=== PATIENT | male | born 1955 | race Two or more races ===

== ENCOUNTER 2017-01-17 10:23 | Emergency (ER) | payer MEDICAID, OTHER ==
[2017-01-17] MEDS ORDERED: IOPAMIDOL 370 (76%) 100 ML VIAL IV ONE (10:24)
[2017-01-17 11:13] LABS: ABSOLUTE NEUTROPHIL COUNT 3.6 K/mm3 (1.8-7.7); BASO % 0.6 % (0.2-1.0); EOS # 0.2 (0.0-0.5); EOS % 3.9 % (0.9-2.9); HEMOGLOBIN 14.6 gm/l (14.0-18.0); IMM NEUT # 0.1 K/mm3 (0-0.2); IMM NEUT% 0.8 % (0-1); LYMPH # 1.9 (1.0-4.8); LYMPH % 29.9 % (15-45); MEAN CELL VOLUME 89.1 fl (80.0-94.0); MEAN CORPUSCULAR HEMOGLOBIN 31.7 pg (27.0-31.0); MEAN CORPUSCULAR HGB CONC 35.6 g/dl (33.0-37.0); MEAN PLATELET VOLUME 12.6 fl (7.4-10.4); MONO # 0.4 (0.0-0.8); MONO % 6.3 % (4-12); NEUT % 58.5 % (43-75); PLATELET COUNT 203 K/mm3 (130-400)
[2017-01-17 11:22] LABS: ALB/GLOB RATIO 1.4 (>1.0); CALCIUM 8.9 mg/dL (8.6-10.3)
[2017-01-17 11:33] LABS: SPECIFIC GRAVITY 1.015 (1.001-1.030); URINE APPEARANCE CLEAR; URINE BILIRUBIN NEGATIVE (NEGATIVE); URINE BLOOD NEGATIVE (NEGATIVE); URINE COLOR YELLOW; URINE GLUCOSE (UA) NEGATIVE (NEGATIVE); URINE LEUKOCYTE ESTERASE NEGATIVE (NEGATIVE); URINE NITRITE NEGATIVE (NEGATIVE); URINE PROTEIN NEGATIVE (NEGATIVE); URINE UROBILINOGEN NORMAL (0-1 mg/dl)
--- NOTE | 2017-01-17 12:25 | CT ---
HEAD W/O CON History: Right-sided facial droop. Comparison: None. Procedure: 1 mm axial images were obtained through the head from the vertex to the base of the skull without intravenous contrast. Stacked reconstructed 5 mm images were then obtained in the axial, coronal and sagittal planes. Findings: The lateral ventricles are of normal size and shape without evidence of hydrocephalus. No evidence of midline shift is seen. No mass or mass-effect is observed. No evidence of intra- or extra-axial fluid collections or hemorrhage is identified. The parks/white differentiation is within expected. The basilar cisterns remain uneffaced. The posterior fossa structures are unremarkable. No acute osseous abnormalities are identified. Impression: 1. A negative unenhanced CT scan of the brain.
--- NOTE | 2017-01-17 12:34 | CT ---
CTA HEAD W/ POST PROCESS History: Facial droop. Comparison: None. Procedure: 1 mm axial images were obtained through the head following the administration of 80cc's of Isovue-370 intravenous contrast. Stacked reconstructed 3 mm images were then photographed in the axial, coronal and sagittal planes. 3-D reconstructed MIP images were also performed on the scanner workstation. Findings: There is a relatively normal course and caliber of the left intracranial carotid artery. The left middle and anterior cerebral branches appear to be appropriate. There is no pruning of the distal middle cerebral artery branches noted. The intracranial portion of the right internal carotid artery demonstrates a relative stenosis seen at axial image 110 at the level of the infrasellar region with at least a stenosis of 60% the original diameter. The middle and anterior cerebral branches remain patent. The distal middle cerebral artery branches do not demonstrate significant pruning. The vertebral arteries are codominant. The basilar artery and posterior cerebral vessels appear to be appropriate. Impression: 1. An approximate 60% diameter stenosis of the intracranial right internal carotid artery in an infrasellar location.
--- NOTE | 2017-01-17 12:39 | CT ---
CTA CAROTID W/ POST PROCESS History: Facial droop. Comparison: None. Procedure: 1 mm axial images were obtained through the neck following the administration of 80cc's of Isovue-370 intravenous contrast. Stacked reconstructed 3 mm images were then photographed in the axial, coronal and sagittal planes. 3-D reconstructed MIP images were also performed on the scanner workstation. Findings: No significant mediastinal adenopathy is visualized. There is note made of a 1.6 cm right thyroid lobe nodule. A few scattered cervical chain lymph nodes are identified. The lung apices appear to be appropriate. The left subclavian artery demonstrates a small amount of soft plaque within its proximal aspect without a significant stenosis. The distal portion of the vessel are appropriate. The innominate and right subclavian arteries are unremarkable. The left common carotid artery is moderately tortuous. There is a small amount of atherosclerotic plaque observed at the bifurcation with a subtle linear focus at the origin of the internal carotid artery which may reflect a subtle intimal flap. The distal portion of the vessel are tortuous door otherwise unremarkable. The right common carotid artery demonstrates a tortuous course. There is a small amount of soft plaque seen at the bifurcation though no significant stenosis is visualized. The vertebral arteries appear to be codominant. The course and caliber of the vessels are unremarkable. Impression: 1. A subtle linear focus of the origin of the left internal carotid artery which may reflect an intimal flap. No significant stenosis is visualized. 2. Soft plaque at the origin of the left subclavian artery without production of a significant stenosis. 3. A 1.6 cm right thyroid lobe nodule. The findings were discussed with Dr. Cartwright at 1235 hours.
== END 2017-01-17 13:28 | disposition home or self-care (01) ==
LOC: ED 10:23
DX: G51.0 Bell's palsy (principal); R51 Headache
CPT/HCPCS: 85025; 80053; 81003; 84484; 70450; 70496; 70498; 99284 ×2; 93005; Q9967